=== PATIENT | female | born 1945 | race Caucasian/White ===

== ENCOUNTER 2020-08-17 10:26 | Inpatient (IN) | payer MEDICARE ==
[~2020-08-17] VITALS: Ht 154.9 cm; Wt 43.4 kg
[2020-08-17 11:02] LABS: HEMATOCRIT 45.5 % (36.0-47.0); HEMOGLOBIN 14.6 g/dl (12.0-15.5); MEAN CORPUSCULAR HGB CONC 32.1 g/dl (32.0-36.5); MEAN CORPUSCULAR VOLUME 87.3 fl (80.0-96.0); PLATELET COUNT, AUTOMATED 336 10^3/uL (150-450); RED BLOOD COUNT 5.21 10^6/uL (4.00-5.40); WHITE BLOOD COUNT 10.4 10^3/uL (4.0-10.0)
--- NOTE | 2020-08-17 11:32 | REP ---
INDICATION: altered mental status COMPARISON: None. TECHNIQUE: Axial noncontrast images from the skull base to the thoracic inlet with coronal reformations. This CT examination was performed using the following dose reduction techniques: Automated exposure control, adjustment of mA and/or kv according to the patient's size, and use of iterative reconstruction technique. FINDINGS: Atrophy with periventricular leukomalacia and microvascular ischemic changes are appreciated. The ventricles and sulci are symmetric. Badillo-white differentiation is maintained. There is no evidence for acute intracranial hemorrhage, mass/mass effect, pathology or infarction. No extra-axial fluid collection. Calvarium is intact. Paranasal sinuses and mastoid air cells are clear. IMPRESSION: Atrophy and microvascular ischemic changes. No acute intracranial hemorrhage, infarction, or mass/mass effect. <Electronically signed by Reymundo Hayes > 08/17/20 1125
[2020-08-17 11:37] LABS: AMPHETAMINES LEVEL URINE NEGATIVE (NEGATIVE); BARBITURATES URINE NEGATIVE (NEGATIVE); BENZODIAZEPINES URINE NEGATIVE (NEGATIVE); CANNABINOIDS URINE NEGATIVE (NEGATIVE); COCAINE METABOLITE URINE NEGATIVE (NEGATIVE); METHADONE URINE NEGATIVE (NEGATIVE); OPIATES URINE NEGATIVE (NEGATIVE); PHENCYCLIDINE URINE NEGATIVE (NEGATIVE)
[2020-08-17 11:44] LABS: ACETAMINOPHEN LEVEL < 2.0 UG/ML (10.0-30.0); ALBUMIN 3.7 GM/DL (3.2-5.2); ALT/SGPT 49 U/L (12-78); BILIRUBIN,DIRECT 0.1 MG/DL (0.0-0.2); BILIRUBIN,TOTAL 0.3 MG/DL (0.2-1.0); BLOOD UREA NITROGEN 24 MG/DL (7-18); CARBON DIOXIDE LEVEL 26 MEQ/L (21-32); CHLORIDE LEVEL 107 MEQ/L (98-107); CK-MB VALUE MASS < 1.0 NG/ML (<3.6); CPK CREATINE PHOSPHOKINASE 60 U/L (26-192); CREATININE FOR GFR 0.35 MG/DL (0.55-1.30); ETHYL ALCOHOL (ETHANOL) 0.003 % (0.000-0.010); FREE T4 2.41 NG/DL (0.76-1.46); GLOMERULAR FILTRATION RATE > 60.0 (>39); GLUCOSE, FASTING 117 MG/DL (70-100); MB/CK RELATIVE INDEX 1.67 (< OR =4); POTASSIUM SERUM 4.2 MEQ/L (3.5-5.1); SALICYLATE LEVEL < 1.7 MG/DL (5.0-30.0); SODIUM LEVEL 144 MEQ/L (136-145); THYROID STIMULATING HORMONE < 0.005 uIU/ML (0.358-3.740); TOTAL PROTEIN 6.9 GM/DL (6.4-8.2); TROPONIN I 0.03 NG/ML (< 0.10)
--- NOTE | 2020-08-17 11:58 | REP ---
INDICATION: altered mental status. COMPARISON: None. TECHNIQUE: PA and lateral FINDINGS: The superior mediastinal structures are midline. The cardiac silhouette is unremarkable in size, shape, and position. The diaphragmatic surfaces of the lungs are regular, and the costophrenic angles are clear. The pulmonary cano are clear. The imaged osseous structures are intact. IMPRESSION: There is no acute cardiopulmonary disease. <Electronically signed by Lizandro Javier > 08/17/20 [id number]
[2020-08-17] MEDS: PROPRANOLOL 20 MG TAB PO SCH ×3 (12:00→21:40)
[2020-08-17] MEDS ORDERED: LABETALOL 100MG/20ML VIAL IV STA (12:20)
[2020-08-17] MEDS ORDERED: NS 1,000 ML IV ONE (12:20)
[2020-08-17] MEDS: propylthiouraciL 50 MG TAB PO SCH ×3 (13:00→22:48)
[2020-08-17] MEDS ORDERED: ACETAMINOPHEN TAB 650MG DOSE (2X325MG) PO PRN (13:20)
[2020-08-17] MEDS ORDERED: HYDROCORTISONE 100 MG/2 ML VIAL (J1720 PER 1) IV SCH (13:20)
[2020-08-17 13:40] LABS: RSV AMPLIFICATION NEGATIVE (NEGATIVE)
[2020-08-17] MEDS: HYDROCORTISONE 100 MG/2 ML VIAL (J1720 PER 1) IV SCH ×2 (14:00→22:47)
[2020-08-17 14:34] LABS: FREE THYROXINE INDEX 7.5 % (1.3-4.8); T UPTAKE 40 % (30-39); THYROXINE (T4) 18.8 UG/DL (4.5-12.0)
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
[2020-08-17] MEDS: POTASSIUM IODIDE 30 ML BTL PO SCH ×2 (15:00→22:47)
[2020-08-17] MEDS ORDERED: NICOTINE POLACRILEX 2 MG GUM PO PRN (15:40)
--- NOTE | 2020-08-17 15:55 | REP ---
INDICATION: HYPERTHYROID COMPARISON: None. TECHNIQUE: Badillo scale and color evaluation of the thyroid gland using the linear high frequency transducer. FINDINGS: Right thyroid lobe measures 5.3 x 3.2 x 2.9 cm and is dominated by a 4.3 x 2.4 x 2.9 cm complex hypervascular nodule and also includes 6 x 3 x 3 mm nonspecific hypoechoic nodule. Left thyroid lobe measures 4.0 x 0.8 x 1.0 cm and includes multiple small hypoechoic nodules and complex cysts which are otherwise nonspecific/indeterminate and likely benign measuring up to 6 x 4 x 5 mm. IMPRESSION: Complex hypervascular dominant nodule in the right thyroid lobe. <Electronically signed by Reymundo Hayes > 08/17/20 2217
[2020-08-17] MEDS: CHOLESTYRAMINE 4 GM PWD PKT PO SCH ×2 (17:00→21:17)
[2020-08-17 19:00] VITALS: BP 141/67
[2020-08-17 20:00] VITALS: BP 136/63
--- NOTE | 2020-08-17 20:12 | ECGEPIP ---
[facility] - ED Test Date: 2020-08-17 Pat Name: KALEB REAVES Department: Room: - Gender: Female Production Department Supervisor: flora : 1945 Requested By: GUIDO Jerez Order Number: [id number] Reading MD: Ginny Portillo Measurements Intervals [place] Rate: 119 P: 72 SD: 126 QRS: 24 QRSD: 68 T: 66 QT: 300 QTc: 422 Interpretive Statements Sinus tachycardia with premature atrial complexes with aberrant conduction Possible Left atrial enlargement Left ventricular hypertrophy ( Sokolow-Love , [place] product , Romhilt-Luque ) Cannot rule out Septal infarct , age undetermined NSTTW abnormalities No prior Electronically Signed on 08-17-2020 20:12:32 EDT by Ginny Portillo
[2020-08-17 21:12] VITALS: BP 141/64
[2020-08-17 22:44] VITALS: BP 135/64
[2020-08-18 01:30] VITALS: BP 136/70
[2020-08-18] MEDS: PROPRANOLOL 20 MG TAB PO SCH ×3 (02:34→08:11)
[2020-08-18] MEDS: propylthiouraciL 50 MG TAB PO SCH ×3 (02:35→09:29)
[2020-08-18 04:00] VITALS: BP 128/60
[2020-08-18] MEDS: POTASSIUM IODIDE 30 ML BTL PO SCH ×2 (04:10→10:21)
[2020-08-18] MEDS: HYDROCORTISONE 100 MG/2 ML VIAL (J1720 PER 1) IV SCH (05:25)
[2020-08-18] MEDS ORDERED: CHOL4PW PO (07:18)
[2020-08-18] MEDS ORDERED: PROP50TAB PO (07:24)
[2020-08-18] MEDS ORDERED: PROP60TA14 PO (07:24)
[2020-08-18] MEDS ORDERED: SELF1KIT MC (07:24)
[2020-08-18] MEDS ORDERED: NICO2GUM PO (07:24)
[2020-08-18 07:55] LABS: BASO % 0.2 % (0.0-1.0); EOS % 0.1 % (0.0-3.0); HEMATOCRIT 43.6 % (36.0-47.0); HEMOGLOBIN 14.2 g/dl (12.0-15.5); LYMPH # 1.1 10^3/uL (1.5-5.0); LYMPH % 10.2 % (24.0-44.0); MEAN CORPUSCULAR HEMOGLOBIN 28.2 pg (27.0-33.0); MEAN CORPUSCULAR HGB CONC 32.6 g/dl (32.0-36.5); MEAN CORPUSCULAR VOLUME 86.5 fl (80.0-96.0); MONO # 0.4 10^3/uL (0.0-0.8); MONO % 3.2 % (2.0-8.0); NEUTROPHILS # 9.3 10^3/uL (1.5-8.5); NEUTROPHILS % 85.7 % (36.0-66.0); PLATELET COUNT, AUTOMATED 308 10^3/uL (150-450); RED BLOOD COUNT 5.04 10^6/uL (4.00-5.40); WHITE BLOOD COUNT 10.9 10^3/uL (4.0-10.0)
[2020-08-18 08:00] VITALS: BP 151/72
[2020-08-18 08:11] VITALS: BP 151/72
[2020-08-18] MEDS: CHOLESTYRAMINE 4 GM PWD PKT PO SCH (08:12)
[2020-08-18 08:23] LABS: ALBUMIN 3.4 GM/DL (3.2-5.2); ALT/SGPT 48 U/L (12-78); BILIRUBIN,TOTAL 0.6 MG/DL (0.2-1.0); BLOOD UREA NITROGEN 14 MG/DL (7-18); CALCIUM LEVEL 9.4 MG/DL (8.8-10.2); CARBON DIOXIDE LEVEL 25 MEQ/L (21-32); CHLORIDE LEVEL 109 MEQ/L (98-107); CHOLESTEROL LEVEL 183 MG/DL (<200); CHOLESTEROL RISK RATIO 2.731 (<5); GLOMERULAR FILTRATION RATE > 60.0 (>39); GLUCOSE, FASTING 147 MG/DL (70-100); HDL CHOLESTEROL 67 MG/DL (>40); LDL CHOLESTEROL 106 MG/DL (<100); NON-HDL-C 116 MG/DL; SODIUM LEVEL 143 MEQ/L (136-145); TOTAL PROTEIN 6.5 GM/DL (6.4-8.2); TRIGLYCERIDES LEVEL 51 MG/DL (<150)
[2020-08-18 08:26] LABS: HEMOGLOBIN A1c 6.2 %
[2020-08-18 08:38] LABS: ERYTHROCYTE SEDIMENTATION RATE 5 mm/hr (0-30)
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
--- NOTE | 2020-08-18 10:49 | MHCR ---
[facility] CONSULTATION DATE: 08/17/2020 HISTORY OF PRESENT ILLNESS: I was asked to see this 75-year-old woman with a history of panic attacks, abnormal thyroid test who has stopped all medical follow up for her thyroid for over 2 years. She was brought in by the Police because they thought that she was walking into traffic in the road. She said that she was on her way to go to the grocery store and she says that she was not going into traffic. The concern; however, is that upon further assessment she has been found to be in the middle of a thyroid storm that indicated that she should be admitted to the medical floor for treatment, actually aggressive treatment. The patient wants to leave Against Medical Advice. Apparently she takes care of her son who lives with her and has cerebral palsy. The patient's son had been taken to [facility] by the Police and the son's father called and spoke with us, with the staff at [facility]. He told them that he now has the son with him in his home and that the son is safe. The patient had been telling us that the son's father was murdered. We were able to obtain information from 2 of the patient's sisters. Apparently they say that she has been going down hill for the past few years, they now have an Order of Protection because the patient had been threatening towards them and they did try to get the patient some mental health treatment in the past, but she apparently did not meet criteria for getting admitted at the time. Apparently she tends to shorten her last name to just rOly and that is the last name under which she had been seen a couple of years ago according to the sisters. The sisters say that the patient has been keeping her son at home, that she stopped taking him to [facility], that she does not allow the father to see his son. She says that her car was repossessed not stolen as the patient says. 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 When I saw the patient the patient I feel does not really understand the immediate danger of her thyroid storm. For one thing she stated "I don't feel sick." Then she went on to tell me that in the past she was seeing Dr. Jurado, but that the doctor told her that she did not need medications anymore and I kept trying to bring the patient back to the immediate situation of her current condition of her thyroid now, but she was focused on the fact that they told her in the past that she did not need medicine and so I do not really think that she understands the consequences of refusing to get the immediate treatment that she needs. I do not believe that she understands that she could because again she focuses on the fact that "I don't feel sick." She of course also became very agitated to find out that her son is now with his father and she started to insist that she had been told that he was and that she needed to check and make sure that her son was indeed with his father and not with some stranger. PAST PSYCHIATRIC HISTORY: Unable to obtain from the patient. It does say that in the past that she was treated with Xanax in the records. FAMILY HISTORY: Unable to obtain. PAST MEDICAL HISTORY: The patient currently is having a thyroid storm. SUBSTANCE ABUSE: Unable to obtain information. MENTAL STATUS EXAM: This patient is alert and oriented times 3. She is pretty agitated at this point and keeps making statements like she is done dealing with everything and that she wants to leave. Her speech is a bit pressured. She says that her mood is fine, affect is somewhat labile. She seems to be having some paranoid thoughts. I did not elicit any hallucinations. Concentration is fair. I was not able to fully test her memory, but it appears to be grossly intact. Insight and judgment poor. DIAGNOSES: 1. (cut out) TREATMENT PLAN: At this point I feel that the patient is having some paranoid delusions. I think she is easily agitated. She has poor insight into the seriousness of her thyroid storm and at this point I do not think that she has the ability to understand the risks of her refusing hospitalization for immediate treatment of her thyroid storm.
== END 2020-08-18 11:50 | disposition home or self-care (01) | DRG 645 ==
LOC: M ED 10:26 → M ED INP 13:17 → ENRESERV 14:06 → M ICU 15:53
PROVIDERS: ADMIT General Practice; ATTEND General Practice
DX: E05.90 Thyrotoxicosis, unspecified without thyrotoxic crisis or storm (principal); I16.0 Hypertensive urgency; Z91.19 Patient's noncompliance with other medical treatment and regimen; Z91.14 Patient's other noncompliance with medication regimen; Z88.2 Allergy status to sulfonamides; F17.200 Nicotine dependence, unspecified, uncomplicated